=== PATIENT | male | born 1970 | race Caucasian/White ===

== ENCOUNTER → 2020-08-03 10:56 | Outpatient (CLI) | payer OTHER, SELFPAY ==
--- NOTE | 2020-08-03 | DI.MRI.S_ITS ---
PROCEDURE: MR HIP RT W CON INDICATIONS: Pain in right hip TECHNIQUE: After the administration of 10 mL of dilute intra-articular Gadolinium contrast, coronal STIR of the bony pelvis; coronal and oblique axial T1 spin echo with fat saturation, axial T2 fast spin echo with fat saturation, sagittal T1 spin echo with and without fat saturation of the involved hip. COMPARISON: [facility], , [place] HIP INJECTION MR/CT RT, 08/03/2020, 10:29. FINDINGS: Image quality: Excellent. Bones and joints: The minimal edema is seen at the right ischial tuberosity is likely related to traction from the adjacent hamstring tendon insertion. Bone marrow of the pelvic ring and proximal femurs otherwise show normal signal throughout. No avascular necrosis of the femoral head. Minimal degenerative changes are seen in the included lower lumbar spine. Tendons and ligaments: There is mild tendinosis of the distal gluteus medius tendons bilaterally at there insertions onto the greater trochanters. The proximal iliotibial band also appears intact. The iliopsoas tendon appears intact, without adjacent bursal fluid collections or evidence for impingement syndrome. The straight and reflected heads of the rectus femoris muscle origin appear intact, as well as the conjoint tendon. The ligamentum teres appears intact where visualized. There is tendinosis and low grade intrasubstance tearing of the proximal hamstring tendons. Labrum and cartilage: The acetabular labrum appears intact throughout. Cartilage surface of the femoral head appears of normal thickness. No paralabral cysts. Soft tissues: Visualized muscles demonstrate normal bulk and internal signal. Quadratus femoris muscle demonstrates no internal edema to suggest ischiofemoral impingement. The proximal sciatic neurovascular bundle appears normal adjacent to the hamstring tendons. No free pelvic fluid. Bladder wall thickness is normal. Genitourinary structures and bowel loops appear normal where visualized. IMPRESSION: 1. Low-grade intrasubstance tearing at the origin of the right proximal hamstring tendons with mild traction edema in the adjacent portion of the right ischial tuberosity. 2. Intact acetabular labrum. No focal cartilage defect is seen in the right hip. 3. Mild tendinosis of the distal gluteus medius tendons bilaterally. Dictated by: Wilmar Walter M.D. on 08/03/2020 at 12:50 Approved by: Wilmar Walter M.D. on 08/03/2020 at 13:03
--- NOTE | 2020-08-03 | DI.RAD.S_ITS ---
PROCEDURE: [place] HIP INJECTION MR/CT RT INDICATIONS: Pain in right hip TECHNIQUE: The indications, alternatives, benefits, risks, and complications of the procedure were explained to the patient. Written informed consent was obtained and placed in the chart. The hip was examined fluoroscopically with the legs fixed in slight internal rotation, and a site for needle placement chosen for entry into the hip joint from an anterior approach. Care was taken to locate the common femoral artery and vein beforehand. The skin was prepped and draped in a sterile fashion, and 1% Lidocaine infiltrated from skin down to joint capsule. A spinal needle was inserted into the joint, and a small amount of iodinated contrast media injected to confirm intra-articular placement of the needle tip. This was followed by approximately 10 mL dilute solution of a gadolinium containing MR contrast agent. The needle was removed and a dressing was applied. The patient was given postprocedural instructions and sent to the MR suite for imaging. FINDINGS: A single fluoroscopic spot image demonstrates intra-articular location of injected iodinated contrast. IMPRESSION: Successful fluoroscopically guided administration of dilute Gadolinium solution into the hip joint for MR arthrogram. Dictated by: Rakesh Sky M.D. on 08/03/2020 at 15:21 Approved by: Rakesh Sky M.D. on 08/03/2020 at 15:23
== END ==
PROVIDERS: Referring Provider General Practice; Visit Provider General Practice
DX: M25.551 Pain in right hip (principal); S76.011A Strain of muscle, fascia and tendon of right hip, initial encounter
CPT/HCPCS: 27093; 73722; 77002

== ENCOUNTER → 2021-05-02 12:02 | Outpatient (CLI) | payer OTHER, SELFPAY ==
--- NOTE | 2021-05-02 12:06 | DI.MRI.S_ITS ---
PROCEDURE: MR ELBOW RT WO CON INDICATIONS: Unspecified injury of right elbow TECHNIQUE: Noncontrast coronal proton density fast spin echo and T2 fast spin echo with fat saturation, axial and sagittal T1 spin echo and T2 fast spin echo with fat saturation through the elbow. COMPARISON: [facility] [place], [place], XR ELBOW 1 OR 2 VIEWS RIGHT, 04/17/2021, 13:14. FINDINGS: Image quality: Excellent. Lateral structures: The lateral ulnar collateral ligament and radial collateral ligament both appear intact. The overlying common extensor tendon demonstrates mild thickening, compatible with mild tendinosis. Medial structures: The ulnar collateral ligament appears intact. The overlying common flexor tendon demonstrates very mild tendinosis. No discrete tendon tear is seen. The ulnar nerve appears normal in size and signal within the cubital tunnel. Anterior structures: The biceps and brachialis tendons both appear intact as they insert onto the proximal radius and ulna, respectively. No bicipitoradial bursal fluid. The median and radial neurovascular bundles appear normal; no focal muscle atrophy to suggest nerve impingement. Posterior structures: The conjoint triceps tendon from the long and lateral heads appears intact. The medial head of the triceps tendon also appears normal, with direct muscle insertion onto the olecranon. No olecranon bursal fluid. Mild nonspecific subcutaneous soft tissue thickening is seen overlying the olecranon. Bone and cartilage: No bone marrow contusions or fractures. No osteochondral injuries. IMPRESSION: 1. Mild to moderate tendinosis of the common extensor tendon at the origin without a discrete tear. 2. Mild tendinosis of the common flexor tendon origin. 3. No acute trabecular bone injury. No joint effusion. Dictated by: Wilmar Walter M.D. on 05/02/2021 at 15:37 Approved by: Wilmar Walter M.D. on 05/02/2021 at 15:45
== END ==
PROVIDERS: PCP Student in an Organized Health Care Education/Training Program; Referring Provider Orthopaedic Surgery; Visit Provider Orthopaedic Surgery
DX: S59.901A Unspecified injury of right elbow, initial encounter (principal); X58.XXXA Exposure to other specified factors, initial encounter
CPT/HCPCS: 73221

== ENCOUNTER → 2022-03-09 10:55 | Outpatient (CLI) | payer OTHER, SELFPAY ==
--- NOTE | 2022-03-09 | DI.RAD.S_ITS ---
PROCEDURE: FL BARIUM SWALLOW INDICATIONS: Gastro-esophageal reflux disease without esophagitis COMPARISON: None. FINDINGS: Function: There is normal esophageal peristalsis. Mild gastroesophageal reflux was noted during the study which occurred without provocative maneuvers. There is normal transit of a calibrated barium tablet through the esophagus into the stomach. Swallowing reflex was normal. No laryngotracheal penetration or aspiration. No pathologic pooling. Morphology: Air-contrast images demonstrate normal mucosal morphology. Single contrast views show no esophageal strictures, extrinsic mass effects, or diverticula. Limited images of the stomach demonstrate normal appearance. IMPRESSION: Gastroesophageal reflux. Dictated by: Yessenia Varela MD, PhD on 03/09/2022 at 14:12 Approved by: Yessenia Varela MD, PhD on 03/09/2022 at 14:16
== END ==
PROVIDERS: PCP Student in an Organized Health Care Education/Training Program; Referring Provider Student in an Organized Health Care Education/Training Program; Visit Provider Student in an Organized Health Care Education/Training Program
DX: K21.9 Gastro-esophageal reflux disease without esophagitis (principal); R13.10 Dysphagia, unspecified; R05.3 Chronic cough
CPT/HCPCS: 74220